=== PATIENT | female | born 1970 | race Caucasian/White ===

== ENCOUNTER → 2018-01-09 | Day surgery (SDC) | payer BC, OTHER ==
[2017-12-21 15:21] VITALS: BMI 47.0
[~2018-01-09] VITALS: Ht 170.2 cm; Wt 137.3 kg
[~2018-01-09] MED LIST: ACETAMINOPHEN 325 MG TAB PO PRN; ATROPINE SULFATE 0.1 MG/ML 5ML SYR IV PRN; BACITRACIN OINT 15 GM TUBE ONE; BUPIVACAINE 0.5 % 5 MG/1 ML MPF 30ML VIAL ONE; CEFAZOLIN 3000MG IV PUSH 22.5 ML IV SCH; CEFAZOLIN SOD 2000MG/15 ML IV PUSH IV ONE; DEXAMETHASONE SOD INJ 4 MG/ML VIAL ONE; EpHEDrine SULFATE INJ 50 MG/ML AMP IV PRN; FENTANYL CITRATE INJ 50 MCG/1 ML 2 ML VIAL ONE; IBUPROFEN 200 MG TAB PO PRN; LACTATED RINGER'S 1000ML 1,000 ML IV SCH; LIDOCAINE HCL 1% 20 ML VIAL ONE; LIDOCAINE HCL 2% 2 ML VIAL (20MG/ML) ONE; LIDOCAINE/EPINEPHRINE 1% 20 ML VIAL ONE; LISI10TA PO; MIDAZOLAM HCL 1 MG/ML 2ML VIAL ONE; MULT1CHW32 PO; MoRPHine SULFATE 2 MG/ML CARP IV PRN; MoRPHine SULFATE 4 MG/ML 1 ML CARP\\VIAL IV PRN; ONDANSETRON INJ 2 MG/ML 2 ML VIAL IV PRN; ONDANSETRON INJ 2 MG/ML 2 ML VIAL ONE; OXYC-57 PO; OXYCODONE/ACETAMINOPHEN 5-325 TAB PO PRN; PROPOFOL IV EMULSION 10 MG/ML 20 ML VIAL IV ONE; ROCURONIUM BROMIDE 10 MG/ML 5 ML VIAL IV ONE; SUCCINYLCHOLINE 100MG/5ML SYR IV ONE
[2018-01-09 05:47] VITALS: BP 136/89; PULSE 90; TEMP 37.1; O2SAT 97; Ht 170.2 cm; Wt 137.3 kg
--- NOTE | 2018-01-09 07:00 | History & Physical Bridge Note ---
H&P Re-Evaluation Bridge Note: I have examined the patient, reviewed the History & Physical and in the interval since the performance of the History & Physical I have noted the following changes of clinical significance: No changes noted
--- NOTE | 2018-01-09 07:48 | [facility] Post Operative Brief Note ---
Immediate Operative Summary Operative Date Jan 09, 2018. Pre-Operative Diagnosis Two masses on left neck Post-Operative Diagnosis Same as preop Procedure(s) Performed Left Neck Resection of two Masses Surgeon Dr. Garrett Millwright Helper Surgeon(s) Haresh Comer PA-C Estimated Blood Loss 6 cc Findings Consistent with Post-Op Diagnosis lipomas Fluids (cc crystalloids) 500ml Specimens A: superior left neck lipoma B: inferior left neck lipoma Drains None Anesthesia Type General Complication(s) none Disposition Accompanied Pt To Recover: yes Disposition: Recovery Room / PACU
--- NOTE | 2018-01-09 08:06 | Discharge Instructions ---
Discharge Instructions Date of Service Jan 09, 2018. Admission Reason for Admission: Lipoma Discharge Discharge Diagnosis / Problem: same Discharge Goals Goal(s): Decrease discomfort, Improve function Activity Recommendations Activity Limitations: per Instructions/Follow-up section No strenuous activity until cleared by surgeon No submerging incisions underwater for 2 weeks (no bathing, swimming, or hot tubs) No driving while taking narcotic pain medication or until you are pain free . Instructions / Follow-Up Instructions / Follow-Up You may shower in 3 days, sponge bath and wash hair in meantime. Try to keep dressings clean and dry. After 3 days, remove outer dressings. Leave steri strips on incisions for 7 days and then remove. They may fall off on their own that is okay. You will be given narcotic pain medication as needed for moderate to severe pain. Only take this medication as needed. This medication may make you drowsy and can cause constipation. You may take extra strength Tylenol or Ibuprofen as needed for mild pain. Follow-up in surgical office in 2 weeks, please call office at [phone] if you do not already have an appointment. Current Hospital Diet Patient's current hospital diet: Discharge Diet Recommended Diet: Regular Diet Procedures Procedures Performed: Left Neck Resection of two Masses Pending Studies Studies pending at discharge: yes List of pending studies: Neck mass x 2, pathology will be reviewed at follow up visit Medical Emergencies . Who to Call and When: Medical Emergencies: If at any time you feel your situation is an emergency, please call 911 immediately. . Non-Emergent Contact Non-Emergency issues call your: Surgeon Call Non-Emergent contact if: you have a fever, temperature is above 101, your pain is not controlled, your pain is worsening, your pain is unusual for you, wound has increased drainage, wound has increased redness, wound has increased pain . "Provider Documentation" section prepared by Elizabeth Comer. . [place] Drug Monitoring Program Search Results: patient reviewed within database, no issues identified
--- NOTE | 2018-01-09 08:24 | Anesthesiology Progress Note ---
Anesthesia Post Op Note Date & Time Jan 09, 2018 at 08:23 Vital Signs Pain Intensity: 0 Vital Signs Past 12 Hours Date Time Temp Pulse Resp B/P (MAP) Pulse Ox O2 Delivery O2 Flow Rate FiO2 01/09/18 08:10 79 16 139/79 100 Oxymask 5 01/09/18 08:04 36.1 89 16 121/77 100 Oxymask 5 01/09/18 05:47 37.1 90 16 136/89 (105) 97 Room Air Notes Mental Status: alert / awake / arousable, participated in evaluation Pt Amnestic to Procedure: Yes Nausea / Vomiting: adequately controlled Pain: adequately controlled Airway Patency, RR, SpO2: stable & adequate BP & HR: stable & adequate Hydration State: stable & adequate Anesthetic Complications: no major complications apparent
--- NOTE | 2018-01-09 09:27 | OPERATIVE REPORT ---
DATE OF OPERATION: 01/09/2018 PREOPERATIVE DIAGNOSES: Two masses on the left neck. POSTOPERATIVE DIAGNOSIS: Same. OPERATION: Resection of 2 mass on the left neck. SURGEON: Virgil Garrett MD. TORPEDO WORKER: Elizabeth Comer PA-C. ANESTHESIA: General. ESTIMATED BLOOD LOSS: About 6 mL. IV FLUIDS: 500 mL. FINDINGS: Two lipomas. COMPLICATIONS: None. INDICATIONS FOR THE PROCEDURE: This is a 47-year-old female who presented with 2 masses on the left side of the neck. The mass is getting bigger, sometimes it causes the patient pain. The patient required resection of 2 masses on the lateral left neck. I did talk to the patient about the benefit and risk, alternate procedure. I indicated the risks may include but not limited such as bleeding, infection, recurrence, injury to nerves, vessels. The patient understands. She signed informed consent and I answered all questions. DETAILS OF PROCEDURE: We brought the patient to the OR, put the patient on the supine position. The patient received SCD on bilateral legs to prevent DVT. Also, patient received 2 grams Ancef IV for prophylactic antibiotic. The patient received general anesthesia without difficulty. The left side of the neck was properly draped in routine sterile fashion. After time out, I injected the local anesthesia by using 1% lidocaine mixed with 0.5% Marcaine around the upper left side of the neck. The left side upper neck mass size was about 2 x 2 cm. Then I made about a 2.5 cm incision and once we made the incision, we found the patient had lipoma. We completely removed lipoma deep to subcutaneous layer. Hemostasis obtained using 3-0 Vicryl, closed subcutaneous layer interruptedly and closed skin by using 4-0 Vicryl and then we moved to the second mass just below near the lower left side of the neck, the size about 1.5 x 1.5 mass and then I injected the local anesthesia by using 1% lidocaine mixed with 0.5% Marcaine around the mass. Then I made a small incision, completely removed the mass which shows lipoma. Hemostasis was obtained. The mass deep to the subcutaneous layer. Then I closed the subcutaneous layer by using 0 Vicryl continuous running, closed skin by using 4-0 Vicryl continuous running. We put the dressing on. The patient tolerated the procedure well. All the instrument, needle and sponge count were correct x2 at the end of case. The patient transferred to recovery room in stable condition. After procedure, I did talk to the patient's family member about OR finding and procedure we did, they understood. Also, I gave patient postop care instructions. I attest to the content of the Intraoperative Record and any orders documented therein. Any exceptions are noted below. TAMI
[2018-01-09 09:55] VITALS: BP 153/80; PULSE 88; TEMP 37; O2SAT 96
== END | disposition home or self-care (01) ==
LOC: C.ACU 05:14
PROVIDERS: ATTEND Surgery
DX: D17.0 Benign lipomatous neoplasm of skin and subcutaneous tissue of head, face and neck (principal); I10 Essential (primary) hypertension; J45.909 Unspecified asthma, uncomplicated; Z90.89 Acquired absence of other organs; Z98.890 Other specified postprocedural states; Z87.891 Personal history of nicotine dependence; Z88.8 Allergy status to other drugs, medicaments and biological substances; E66.01 Morbid (severe) obesity due to excess calories; Z68.41 Body mass index [BMI] 40.0-44.9, adult; Z90.49 Acquired absence of other specified parts of digestive tract; Z80.0 Family history of malignant neoplasm of digestive organs; Z83.3 Family history of diabetes mellitus; Z82.0 Family history of epilepsy and other diseases of the nervous system

== ENCOUNTER → 2018-02-16 | Day surgery (SDC) | payer BC ==
[2018-02-07 14:19] VITALS: BMI 47.0
--- NOTE | 2018-02-07 15:02 | PAT Medication Instructions ---
Service Date February 07, 2018. Current Home Medication List Albuterol Hfa (Ventolin Hfa), 2 PUFFS INH Q6H PRN for PRN Fluocinonide (Fluocinonide), 1 APPLN TOP BID PRN for RN Ibuprofen (Advil), 800 MG PO PRN Lisinopril (Prinivil), 10 MG PO NOON Multiple Vitamins W/ Minerals (Alive Womens Gummy Vitami), 1 DOSE PO QAM Naproxen Sodium-Diphenhydramin (Aleve Pm 220-25 mg), 2 TAB PO PRN Medication Instructions For Your Scheduled Surgery -Check with your surgeon if you plan on taking: Ibuprofen (Advil), 800 MG PO PRN Naproxen Sodium-Diphenhydramin (Aleve Pm 220-25 mg), 2 TAB PO PRN - Hold the following medications 24 hours prior to surgery: Fluocinonide (Fluocinonide), 1 APPLN TOP BID PRN for RN - Hold the following medications the morning of surgery: Multiple Vitamins W/ Minerals (Alive Womens Gummy Vitami), 1 DOSE PO QAM - Take the following medications the morning of surgery with a sip of water: Albuterol Hfa (Ventolin Hfa), 2 PUFFS INH Q6H PRN for PRN (if needed, and bring it with you to the hospital) - Take the following medications as scheduled the night before surgery: Albuterol Hfa (Ventolin Hfa), 2 PUFFS INH Q6H PRN for PRN (if needed) Lisinopril (Prinivil), 10 MG PO NOON If you have any questions please call us at [phone] or [phone] or [phone]
[2018-02-07 15:12] LABS: BASO % 0.5 %; BASO ABS # 0.05 K/uL (0-0.2); EOS % 1.4 %; EOS ABS # 0.14 K/uL (0-0.5); HEMATOCRIT 42.9 % (37-47); HEMOGLOBIN 14.6 g/dL (12.0-16.0); IG# 0.03 K/uL (0.00-0.02); LYMPH % 27.7 %; MEAN CORPUSCULAR HEMOGLOBIN 29.6 pg (25-34); MEAN PLATELET VOLUME 9.7 fL (7.4-10.4); MONO % 8.5 %; MONO ABS # 0.83 K/uL (0.11-0.59); NEUT % 61.6 %; NEUT ABS # 5.99 K/uL (1.4-6.5); PLATELET COUNT 278 K/uL (130-400); RED CELL DISTRIBUTION WIDTH CV 12.8 % (11.5-14.5); RED CELL DISTRIBUTION WIDTH SD 41.1 fL (36.4-46.3); WHITE BLOOD COUNT 9.74 K/uL (4.8-10.8)
[2018-02-07 15:42] LABS: CALCIUM 9.3 mg/dl (8.5-10.1); CREATININE 0.86 mg/dl (0.60-1.20); POTASSIUM 4.3 mmol/L (3.5-5.1)
[~2018-02-16] VITALS: Ht 170.2 cm; Wt 137.8 kg
[~2018-02-16] MED LIST changes: +ACETAMINOPHEN 1000 MG/100 ML IV IV ONE; -ACETAMINOPHEN 325 MG TAB PO PRN; -BACITRACIN OINT 15 GM TUBE ONE; -BUPIVACAINE 0.5 % 5 MG/1 ML MPF 30ML VIAL ONE; -CEFAZOLIN 3000MG IV PUSH 22.5 ML IV SCH; -CEFAZOLIN SOD 2000MG/15 ML IV PUSH IV ONE; +FENTANYL CITRATE INJ 50 MCG/1 ML 2 ML VIAL IV PRN; +FLUO0.0566 TOP; +IBUP-1050 PO; -IBUPROFEN 200 MG TAB PO PRN; +IBUPROFEN 600 MG TAB PO PRN; +KETOROLAC TROMETHAMINE 30 MG/ML VIAL IV. PRN; +KETOROLAC TROMETHAMINE 30 MG/ML VIAL ONE; -LIDOCAINE HCL 1% 20 ML VIAL ONE; -LIDOCAINE/EPINEPHRINE 1% 20 ML VIAL ONE; -MoRPHine SULFATE 2 MG/ML CARP IV PRN; -MoRPHine SULFATE 4 MG/ML 1 ML CARP\\VIAL IV PRN; +NAPR-998 PO; -OXYC-57 PO; +PROMETHAZINE HCL INJ 25 MG in SODIUM CHLORIDE 0.9% 50ML 50 ML IV PRN; -PROPOFOL IV EMULSION 10 MG/ML 20 ML VIAL IV ONE; +PROPOFOL IV EMULSION 10 MG/ML 20 ML VIAL ONE; -ROCURONIUM BROMIDE 10 MG/ML 5 ML VIAL IV ONE; +SODIUM CHLORIDE 0.9% 1000ML 1,000 ML IV SCH; -SUCCINYLCHOLINE 100MG/5ML SYR IV ONE; +VNTHFA/IN INH
[2018-02-16 07:43] VITALS: BP 145/89; PULSE 82; TEMP 36.7; O2SAT 99; Ht 170.2 cm; Wt 137.8 kg
--- NOTE | 2018-02-16 10:12 | [facility] Post Operative Brief Note ---
Immediate Operative Summary Operative Date February 16, 2018. Pre-Operative Diagnosis Abnormal uterine bleeding Post-Operative Diagnosis Same Procedure(s) Performed Hysteroscopy, Dilation and Curettage, Hysteroscopic Polypectomy with Myosure Surgeon Dr Hui Field Recruiter Surgeon(s) none Estimated Blood Loss 10ML Findings Consistent with Post-Op Diagnosis Fluids (cc crystalloids) 1100 Specimens A. endometrial polyp (permanent) B. endometrial curettings (permanent) Drains None Anesthesia Type General Complication(s) none Disposition Disposition: Recovery Room / PACU
--- NOTE | 2018-02-16 10:26 | Discharge Instructions ---
Discharge Instructions Date of Service February 16, 2018. Admission Reason for Admission: Abnormal Uterine Bleeding, Submucosal Myoma Discharge Discharge Diagnosis / Problem: Post-op Discharge Goals Goal(s): Routine recovery after surgery Activity Recommendations Activity Limitations: as noted below ACTIVITY RECOMMENDATIONS: * Avoid tampons, douching, hot tubs, pools, and intercourse until bleeding has stopped. * May shower as usual. * No strenuous activity for 24-48 hours. After 24-48 hours, you can do anything you feel like doing (driving and sports are okay). RETURN TO SCHOOL/WORK: * You may return to school or work after 24 hours unless specified by your physician. DIET: * Resume previous diet. MEDICATIONS: Resume previous medications unless instructed otherwise by your surgeon. Ibuprofen 200mg 2-3 tablets every 4-6 hours as needed --OR-- Aleve 2 tablets every 8-12 hours as needed for post-operative discomfort Medications are over the counter. Tylenol may be used if above medications are contraindicated or not preferred. Medication should be taken with food or milk. do not take on an empty stomach. SPECIAL CARE INSTRUCTIONS: * Check temperature twice daily for one week. Report any elevation over 101 degrees. * Call office if you experience increased pelvic pain or discomfort not relieved by pain medicine, if you have foul smelling vaginal discharge, if you have bleeding that is heavier than a normal menstrual flow. If you are changing a maxi pad every 1- 2 hours, this is too heavy. vaginal spotting is normal for 1-2 weeks. FOLLOW UP VISIT: Call your doctor's office for a post-operative visit. . Current Hospital Diet Patient's current hospital diet: Discharge Diet Recommended Diet: Regular Diet Procedures Procedures Performed: Hysteroscopy, Dilation and Curettage, Hysteroscopic Polypectomy with Myosure Pending Studies Studies pending at discharge: no Medical Emergencies . Who to Call and When: Medical Emergencies: If at any time you feel your situation is an emergency, please call 911 immediately. . Non-Emergent Contact Non-Emergency issues call your: Specialist . . "Provider Documentation" section prepared by Tabby López. .
--- NOTE | 2018-02-16 10:45 | [facility] Operative Report ---
Operative Report Operative Date February 16, 2018. Pre-Operative Diagnosis Abnormal uterine bleeding Post-Operative Diagnosis Same Procedure(s) Performed Hysteroscopy, Dilation and Curettage, Hysteroscopic Polypectomy with Myosure Surgeon Dr Hui Gum Cook Surgeon(s) none Estimated Blood Loss 10ML Findings 1. 9 cm retroverted uterus 2. Polypoid endometrial tissue 3. Bilateral tubal ostia visualized Fluids 1100 Specimens A. endometrial polyp (permanent) B. endometrial curettings (permanent) Drains None Anesthesia Type General Complication(s) none Disposition Recovery Room / PACU Indications 47 yo with abnormal uterine bleeding. Pelvic ultrasound concerning for submucosal myoma vs endometrial polyp. Description of Procedure The patient was previously consented and seen in the preoperative suite. She was taken to the operative suite, placed in a dorsal lithotomy position, and placed under IV sedation. She was prepped and draped in the normal sterile fashion. Her bladder was drained with a catheter which produced approximately 200cc of clear yellow urine. A bimanual exam was performed. The uterus was non- palpable secondary to body habitus. The cervix and vagina were grossly normal with no obvious masses or deformities. A weighted speculum was placed in the posterior aspect of the vagina and the anterior lip of the cervix was grasped with a single tooth tenaculum. The uterus was sounded to 9 cm (uterus noted to be retroverted due to introduction of uterine instruments). The cervix was sterilely dilated with Donnell dilators. The hysteroscope then entered the uterine cavity. Under direct visualization, the ostia were within normal limits. The endometrial lining was noted to have a vast amount of polypoid tissue. The Myosure device was then entered into the uterine cavity and used to remove the polypoid tissue from the endometrial cavity. Once all tissue was adequately removed, the hysteroscope and myosure device was removed. A sharp curette was placed intrauterine very carefully. Endometrial curettings were obtained. The endometrial sampling was placed on Telfa pad and sent to Pathology for evaluation. The uterine curette was removed as well as the single tooth tenaculum. The tenaculum sites were noted to be bleeding. A figure of eight stitch with 3-0 Vicryl was placed on the anterior lip of the cervix. The cervix was found to be hemostatic. All vaginal instrumentation was removed. The patient was taken off the dorsal lithotomy position and recovered from her IV sedation in the recovery room. The patient will be sent home once stable from anesthesia. I attest to the content of the Intraoperative Record and any orders documented therein. Any exceptions are noted below.
[2018-02-16 11:00] VITALS: BP 138/78; PULSE 68; TEMP 36.5; O2SAT 98
[2018-02-16 11:30] VITALS: BP 121/73; PULSE 69; TEMP 36.3; O2SAT 99
--- NOTE | 2018-02-16 13:13 | Anesthesiology Progress Note ---
Anesthesia Post Op Note Date & Time February 16, 2018 at 13:13 Vital Signs Pain Intensity: 0 Vital Signs Past 12 Hours Date Time Temp Pulse Resp B/P (MAP) Pulse Ox O2 Delivery O2 Flow Rate FiO2 02/16/18 11:30 36.3 69 18 121/73 99 Room Air 02/16/18 11:00 36.5 68 18 138/78 98 Room Air 02/16/18 10:55 36.6 66 17 129/78 99 Room Air 02/16/18 10:45 65 13 123/90 98 Room Air 02/16/18 10:35 67 13 125/88 100 Oxymask 10 02/16/18 10:25 69 12 121/83 100 Oxymask 10 02/16/18 10:17 36.1 79 18 139/95 97 Oxymask 10 02/16/18 07:43 36.7 82 18 145/89 (107) 99 Room Air Notes Mental Status: alert / awake / arousable, participated in evaluation Pt Amnestic to Procedure: Yes Nausea / Vomiting: adequately controlled Pain: adequately controlled Airway Patency, RR, SpO2: stable & adequate BP & HR: stable & adequate Hydration State: stable & adequate Anesthetic Complications: no major complications apparent
== END | disposition home or self-care (01) ==
LOC: C.ACU 07:06
PROVIDERS: ATTEND Obstetrics & Gynecology Obstetrics
DX: N93.9 Abnormal uterine and vaginal bleeding, unspecified (principal); N85.02 Endometrial intraepithelial neoplasia [EIN]; Z83.3 Family history of diabetes mellitus; Z87.891 Personal history of nicotine dependence; Z88.8 Allergy status to other drugs, medicaments and biological substances; J45.909 Unspecified asthma, uncomplicated; I10 Essential (primary) hypertension; E78.5 Hyperlipidemia, unspecified; E66.01 Morbid (severe) obesity due to excess calories; F41.9 Anxiety disorder, unspecified